=== PATIENT | female | born 1950 | race Caucasian/White ===

== ENCOUNTER 2021-08-31 13:23 | Emergency (ER) | payer OTHER ==
[2021-08-31 13:35] VITALS: BP 120/76; PULSE 74; TEMP 97.8; BMI 36.1
[2021-08-31] MEDS ORDERED: LIDOCAINE 5% TOPICAL PATCH TP ONE (14:24)
[2021-08-31] MEDS ORDERED: KETOROLAC TROMETHAMINE 15 MG/ML VIAL IM ONE (14:24)
[2021-08-31] MEDS ORDERED: METHOCARBAMOL 500 MG TABLET PO ONE (14:25)
[2021-08-31] MEDS ORDERED: METHOCARBAMOL 500 MG TABLET ONE ×2 (14:46→14:57)
[2021-08-31] MEDS ORDERED: LIDOCAINE 5% TOPICAL PATCH ONE (14:46)
[2021-08-31] MEDS ORDERED: KETOROLAC TROMETHAMINE 15 MG/ML VIAL ONE (14:47)
[2021-08-31] MEDS ORDERED: LIDOCAINE PATCH REMOVAL MC ONE (22:00)
== END 2021-08-31 17:40 | disposition home or self-care (01) ==
LOC: JER 13:23
PROC: 3E0233Z Introduction of Anti-inflammatory into Muscle, Percutaneous Approach (ICD-10-PCS; principal; 2021-08-31)
DX: M54.32 Sciatica, left side (principal)
CPT/HCPCS: 72100-TC-FY; 96372; 99284-25

== ENCOUNTER 2022-12-10 20:44 | Emergency (ER) | payer OTHER ==
[2022-12-10 20:55] VITALS: RESP 18; TEMP 98.5; BMI 33.0
[2022-12-11] MEDS ORDERED: ACETAMINOPHEN 500 MG TABLET (FP) PO ONE (00:17)
[2022-12-11] MEDS ORDERED: ACETAMINOPHEN 325 MG TABLET (FP) ONE (00:25)
[2022-12-11 01:05] VITALS: BP 120/70; PULSE 64
== END 2022-12-11 01:05 | disposition home or self-care (01) ==
LOC: JER 20:44
DX: R51.9 Headache, unspecified (principal); H92.01 Otalgia, right ear; W20.8XXA Other cause of strike by thrown, projected or falling object, initial encounter; Y93.9 Activity, unspecified; Y92.9 Unspecified place or not applicable
CPT/HCPCS: 70450-TC; 72125-TC; 99284-25

== ENCOUNTER 2023-08-11 16:45 | Emergency (ER) | payer OTHER ==
[2023-08-11 16:57] VITALS: BP 155/48; PULSE 72; RESP 20; TEMP 98.1; BMI 33.8
[2023-08-11] MEDS ORDERED: ACETAMINOPHEN INJECTION 100 ML IVPB ONE (18:04)
[2023-08-11] MEDS: ACETAMINOPHEN 1000 MG/100 ML BAG IVPB ONE (18:16)
[2023-08-11 18:28] LABS: BASO % 0.3 % (0-2.0); EOS % 1.6 % (0-4.5); HEMATOCRIT 37.2 % (32.4-45.2); HEMOGLOBIN 12.6 GM/dL (10.7-15.3); LYMPH % 39.3 % (8-40); MCH 30.6 pg (25.7-33.7); MCHC 33.9 g/dl (32.0-36.0); MEAN CELL VOLUME 90.5 fl (80-96); MEAN PLT VOLUME 7.8 fl (7.5-11.1); MONO % 9.5 % (3.8-10.2); NEUT % 49.3 % (42.8-82.8); PLATELET COUNT 216 10^3/uL (134-434); RBC 4.12 M/mm3 (3.60-5.2); WHITE BLOOD COUNT 6.9 K/mm3 (4.0-10.0)
[2023-08-11 18:57] LABS: CALCIUM 9.2 mg/dL (8.5-10.1)
[2023-08-11 18:58] LABS: ALBUMIN 3.4 g/dl (3.4-5.0)
[2023-08-11 19:01] LABS: CREATININE 0.9 mg/dL (0.55-1.3)
[2023-08-11 19:02] LABS: TOT PROT 6.9 g/dl (6.4-8.2)
[2023-08-11 19:03] LABS: BILIRUBIN,TOTAL 0.4 mg/dL (0.2-1)
== END 2023-08-11 22:14 | disposition home or self-care (01) ==
LOC: JER 16:45
PROC: 3E033NZ Introduction of Analgesics, Hypnotics, Sedatives into Peripheral Vein, Percutaneous Approach (ICD-10-PCS; principal; 2023-08-11)
DX: R07.89 Other chest pain (principal); Z20.822 Contact with and (suspected) exposure to COVID-19
CPT/HCPCS: 0241U-QW; 36415; 71045-TC-FY; 80053; 84484; 85025; 85379; 93005; 93010; 96374; 99285-25; J0131

== ENCOUNTER 2024-03-08 11:42 | Emergency (ER) | payer OTHER ==
[2024-03-08 11:58] VITALS: BP 134/76; PULSE 87; RESP 16; TEMP 98.6; BMI 34.9
[2024-03-08] MEDS ORDERED: CYCLOBENZAPRINE HCL 5 MG TABLET ONE (12:54)
[2024-03-08] MEDS ORDERED: ACETAMINOPHEN INJECTION 100 ML ONE (12:54)
[2024-03-08 13:03] LABS: BASO % 0.3 % (0-2.0); EOS % 0.6 % (0-4.5); HEMATOCRIT 37.8 % (32.4-45.2); HEMOGLOBIN 12.4 GM/dL (10.7-15.3); LYMPH % 27.2 % (8-40); MCHC 32.9 g/dl (32.0-36.0); MEAN CELL VOLUME 91.2 fl (80-96); MEAN PLT VOLUME 7.5 fl (7.5-11.1); MONO % 9.2 % (3.8-10.2); NEUT % 62.7 % (42.8-82.8); PLATELET COUNT 234 10^3/uL (134-434); RBC 4.14 M/mm3 (3.60-5.2); RDW 13.9 % (11.6-15.6)
[2024-03-08] MEDS: CYCLOBENZAPRINE HCL 10 MG TABLET (FP) PO ONE (13:06)
[2024-03-08] MEDS: ACETAMINOPHEN 1000 MG/100 ML BAG IVPB ONE (13:06)
[2024-03-08 14:25] LABS: POTASSIUM 4.3 mmol/L (3.5-5.1)
[2024-03-08 14:26] LABS: BLOOD UREA NITROGEN 17.7 mg/dL (7-18); CALCIUM 9.4 mg/dL (8.5-10.1)
[2024-03-08 14:28] LABS: ALBUMIN 3.2 g/dl (3.4-5.0)
[2024-03-08 14:31] LABS: CREATININE 0.8 mg/dL (0.55-1.3)
[2024-03-08 14:32] LABS: BILIRUBIN,TOTAL 0.5 mg/dL (0.2-1); TOT PROT 6.9 g/dl (6.4-8.2)
[2024-03-08 14:33] LABS: HIV INTERPRETATION NEGATIVE (NEGATIVE)
== END 2024-03-08 14:19 | disposition home or self-care (01) ==
LOC: JER 11:42
PROC: 3E033NZ Introduction of Analgesics, Hypnotics, Sedatives into Peripheral Vein, Percutaneous Approach (ICD-10-PCS; principal; 2024-03-08)
DX: M43.6 Torticollis (principal); M25.512 Pain in left shoulder; M54.6 Pain in thoracic spine
CPT/HCPCS: 36415; 80053; 84484; 85025; 86803; 87389; 93005; 93010; 96374; 99284-25; J0131